=== PATIENT | male | born 1995 | race Two or more races ===

== ENCOUNTER 2022-01-15 08:41 | Emergency (ER) | payer OTHER ==
[~2022-01-15] VITALS: Ht 167.6 cm; Wt 111.1 kg
== END 2022-01-15 13:24 | disposition home or self-care (01) ==
LOC: ER 08:41
DX: R53.81 Other malaise (principal); D72.829 Elevated white blood cell count, unspecified

== ENCOUNTER → 2023-07-31 06:00 | Outpatient (CLI) | payer OTHER ==
[~2023-07-31] VITALS: Ht 167.6 cm; Wt 113.4 kg
[2023-07-31 12:31] LABS: HEMATOCRIT 45.3 % (39.0-48.0); MEAN CELL VOLUME 88.2 fL (80.0-100.00); MEAN CORPUSCULAR HEMOGLOBIN 29.2 pg (27.00-32.0); MEAN CORPUSCULAR HGB CONC 33.2 g/dl (32.0-36.0); PLATELET COUNT 268 K/uL (150-450); RED BLOOD COUNT 5.14 M/uL (4.00-6.00); RED CELL DISTRIBUTION WIDTH 13.5 % (11.5-14.5)
[2023-07-31 12:41] LABS: INR 1.08; PROTHROMBIN TIME 11.3 SECONDS (9.0-11.5)
[2023-07-31 12:47] LABS: PARTIAL THROMBOPLASTIN TIME 46.8 SECONDS (22.0-34.0)
== END | disposition home or self-care (01) ==
LOC: EKG 06:00 → LAB 06:00 → ADM 07:30 → CIR.AMB 08-05 07:30 → EDSTATUS 08-05 07:30 → CIR.AMB 08-05 10:45
PROVIDERS: ATTEND Specialist
DX: U07.1 COVID-19 (principal); K80.10 Calculus of gallbladder with chronic cholecystitis without obstruction

== ENCOUNTER → 2023-11-07 14:50 | Outpatient (CLI) | payer OTHER ==
[2023-11-07 16:15] LABS: COL EPI 123 SECONDS (82-175)
== END | disposition home or self-care (01) ==
LOC: LAB 14:50
PROVIDERS: ATTEND Internal Medicine Hematology & Oncology
DX: D68.8 Other specified coagulation defects (principal)

== ENCOUNTER 2024-01-02 06:46 | Outpatient (CLI) | payer OTHER ==
[2024-01-02 07:45] LABS: HEMATOCRIT 43.8 % (39.0-48.0); HEMOGLOBIN 14.7 g/dL (13-16.00); MEAN CELL VOLUME 87.3 fL (80.0-100.00); MEAN CORPUSCULAR HEMOGLOBIN 29.3 pg (27.00-32.0); MEAN CORPUSCULAR HGB CONC 33.6 g/dl (32.0-36.0); PLATELET COUNT 251 K/uL (150-450); RED BLOOD COUNT 5.02 M/uL (4.00-6.00); RED CELL DISTRIBUTION WIDTH 13.9 % (11.5-14.5)
[2024-01-02 08:04] LABS: PH,URINE 5.5 (5.0-8.0); URINE APPEARANCE Clear; URINE BILIRRUBIN Negative (NEGATIVE); URINE BLOOD Negative; URINE COLOR Yellow; URINE GLUCOSE Negative (NEGATIVE); URINE LEUKOCYTE Negative; URINE NITRATE Negative; URINE PROTEIN Negative (NEGATIVE); URINE UROBILINOGEN 0.2 E.U./dl
[2024-01-02 08:07] LABS: URINE BACTERIA 20.1 uL (0.0-1933); URINE EPITHELIAL CELLS 2.4 uL (0.0-38.8); URINE WBC 4.3 uL (0.0-23.2)
[2024-01-02 08:11] LABS: URINE RBC 1.4 uL (0.0-20.8)
[2024-01-02 08:24] LABS: INR 1.09; PARTIAL THROMBOPLASTIN TIME 47.3 SECONDS (22.0-34.0); PROTHROMBIN TIME 11.4 SECONDS (9.0-11.5)
[2024-01-02 08:38] LABS: ALBUMIN 3.8 gm/dL (3.4-5.0); BILIRUBIN TOTAL 2.13 mg/dL (0.3-1.2); CALCIUM 9.2 mg/dL (8.5-10.1); CREATININE SERUM 0.89 mg/dL (0.70-1.30); GFR 103.32; GLOBULINA 3.9 G/DL (2.4-3.5); POTASSIUM 3.61 mEq/L (3.5-5.1); TOTAL PROTEIN 7.7 gm/dL (6.4-8.2)
[2024-01-03 08:10] LABS: IMMUNOGLOBULIN A 312 mg/dL (90-386); IMMUNOGLOBULIN G 1426 mg/dL (603-1613); IMMUNOGLOBULIN M 181 mg/dL (20-172)
[2024-01-03 16:09] LABS: DNA AB DOUBLE STRABDED 1 IU/mL (0-9); rnp < 0.2 AI (0.0-0.9); smith ab < 0.2 AI (0.0-0.9)
[2024-01-04 12:10] LABS: SMOOTH MUSCLE ANTIBODY 7 Units (0-19)
[2024-01-05 22:06] LABS: beta 2 gly iga < 9 (0-25); beta 2 gly igg 82 (0-20); beta 2 gly igm < 9 (0-32)
== END 2024-01-02 06:47 | disposition home or self-care (01) ==
LOC: LAB 06:46
PROVIDERS: ATTEND Internal Medicine Hematology & Oncology
DX: K80.10 Calculus of gallbladder with chronic cholecystitis without obstruction (principal)

== ENCOUNTER 2024-01-02 09:51 | Outpatient (CLI) | payer OTHER | END 2024-01-02 10:01 | disposition home or self-care (01) | LOC: SONOGRAMA 09:51 | PROVIDERS: ATTEND Specialist | DX: K80.10 Calculus of gallbladder with chronic cholecystitis without obstruction (principal) ==

== ENCOUNTER 2024-01-20 10:22 | Outpatient (CLI) | payer OTHER ==
[2024-01-20 11:59] LABS: BILIRUBIN TOTAL 1.87 mg/dL (0.3-1.2); CALCIUM 9.6 mg/dL (8.5-10.1); CREATININE SERUM 0.87 mg/dL (0.70-1.30); GFR 106.07; GLOBULINA 3.7 G/DL (2.4-3.5); POTASSIUM 4.1 mEq/L (3.5-5.1); TOTAL PROTEIN 7.7 gm/dL (6.4-8.2)
== END 2024-01-20 10:40 | disposition home or self-care (01) ==
LOC: LAB 10:22
PROVIDERS: ATTEND Internal Medicine Gastroenterology
DX: R10.9 Unspecified abdominal pain (principal)

== ENCOUNTER 2024-01-20 11:15 | Outpatient (CLI) | payer OTHER | END 2024-01-20 11:38 | disposition home or self-care (01) | LOC: MRI 11:15 | PROVIDERS: ATTEND Specialist | DX: K80.10 Calculus of gallbladder with chronic cholecystitis without obstruction (principal) | CPT/HCPCS: 74181 ==